=== PATIENT | female | born 1940 | race Caucasian/White ===

== ENCOUNTER → 2017-10-22 | Outpatient (REF) | payer OTHER ==
[2017-10-22 14:33] LABS: FOLATE 16.8 NG/ML; VITAMIN B12 LEVEL 411 PG/ML
[2017-10-27 00:07] LABS: VITAMIN B1 LEVEL WHOLE BLOOD 102.8 nmol/L (66.5-200.0); VITAMIN E LEVEL 11.6 mg/L (6.5-21.5)
== END ==
LOC: M LAB REF 13:00
DX: G90.09 Other idiopathic peripheral autonomic neuropathy (principal); R41.0 Disorientation, unspecified; Z13.1 Encounter for screening for diabetes mellitus
CPT/HCPCS: 82746

== ENCOUNTER → 2018-01-27 | Outpatient (REF) | payer OTHER ==
[2018-01-27 20:25] LABS: VITAMIN B12 LEVEL 615 PG/ML (247-911)
== END ==
LOC: M LAB REF 17:29
DX: R53.83 Other fatigue (principal)
CPT/HCPCS: 82607

== ENCOUNTER 2018-07-02 11:25 | Emergency (ER) | payer OTHER ==
[2018-07-02 11:53] LABS: BASO % 0.4 % (0.0-1.0); EOS % 0.5 % (0.0-3.0); HEMATOCRIT 39.9 % (36.0-47.0); HEMOGLOBIN 12.8 g/dl (12.0-15.5); IMMATURE GRANULOCYTE % 0.8 % (0-3.0); LYMPH # 3.4 10^3/uL (1.5-4.5); LYMPH % 43.8 % (24.0-44.0); MEAN CORPUSCULAR HEMOGLOBIN 27.7 pg (27.0-33.0); MEAN CORPUSCULAR HGB CONC 32.1 g/dl (32.0-36.5); MEAN CORPUSCULAR VOLUME 86.4 fl (80.0-96.0); MONO # 0.4 10^3/uL (0.0-0.8); MONO % 5.5 % (0.0-5.0); NEUTROPHILS # 3.8 10^3/uL (1.8-7.7); PLATELET COUNT, AUTOMATED 240 10^3/uL (150-450); RED BLOOD COUNT 4.62 10^6/uL (4.00-5.40); RED CELL DISTRIBUTION WIDTH 13.4 % (11.5-14.5); WHITE BLOOD COUNT 7.8 10^3/uL (4.0-10.0)
[2018-07-02 12:24] LABS: ALBUMIN 3.6 GM/DL (3.2-5.2); ALBUMIN/GLOBULIN RATIO 0.97 (1.00-1.93); ALKALINE PHOSPHATASE 75 U/L (45-117); ALT/SGPT 19 U/L (12-78); ANION GAP 11 MEQ/L (8-16); AST/SGOT 16 U/L (7-37); BILIRUBIN,DIRECT < 0.1 MG/DL (0.0-0.2); BILIRUBIN,TOTAL 0.4 MG/DL (0.2-1.0); BLOOD UREA NITROGEN 13 MG/DL (7-18); CALCIUM LEVEL 8.4 MG/DL (8.8-10.2); CARBON DIOXIDE LEVEL 26 MEQ/L (21-32); CHLORIDE LEVEL 105 MEQ/L (98-107); CPK CREATINE PHOSPHOKINASE 76 U/L (26-192); CREATININE FOR GFR 0.74 MG/DL (0.55-1.30); GLOMERULAR FILTRATION RATE > 60.0 (>32); GLUCOSE, FASTING 140 MG/DL (70-100); MB/CK RELATIVE INDEX 1.58 (< OR =4); POTASSIUM SERUM 3.2 MEQ/L (3.5-5.1); SODIUM LEVEL 142 MEQ/L (136-145); TOTAL PROTEIN 7.3 GM/DL (6.4-8.2); TROPONIN I < 0.02 NG/ML (< 0.10)
[2018-07-02] MEDS: ONDANSETRON 4MG/2ML VIAL (J2405) IV (12:27)
[2018-07-02] MEDS: MECLIZINE 25 MG TABLET PO (13:15)
[2018-07-02 14:03] LABS: MAGNESIUM LEVEL 2.2 MG/DL (1.8-2.4)
[2018-07-02 15:03] LABS: APPEARANCE, URINE HAZY (CLEAR); BACTERIA, URINE AUTO 1+ (NEGATIVE); BILIRUBIN, URINE AUTO NEGATIVE (NEGATIVE); BLOOD, URINE BLOOD NEGATIVE (NEGATIVE); COLOR, URINE YELLOW (YELLOW); GLUCOSE, URINE (UA) AUTO NEGATIVE (NEGATIVE); KETONE, URINE AUTO 1+ mg/dL (NEGATIVE); LEUKOCYTE ESTERASE, URINE AUTO 3+ (NEGATIVE); MUCUS, URINE SMALL (NEGATIVE); NITRITE, URINE AUTO POSITIVE (NEGATIVE); PROTEIN, URINE AUTO NEGATIVE (NEGATIVE); RBC, URINE AUTO 8 /HPF (0-3); SPECIFIC GRAVITY URINE AUTO 1.013 (1.002-1.035); SQUAMOUS EPITHELIAL CELL UR AU 2 /HPF (0-6); UROBILINOGEN, URINE AUTO 0.2 mg/dL (0.0-2.0); WBC, URINE AUTO 63 /HPF (0-3)
[2018-07-02] MEDS: CEPHALEXIN 500 MG CAP PO (16:17)
== END 2018-07-02 16:33 | disposition home or self-care (01) ==
LOC: M ED 11:25
DX: R42 Dizziness and giddiness (principal); E03.9 Hypothyroidism, unspecified
CPT/HCPCS: J2405

== ENCOUNTER → 2018-08-05 | Outpatient (REF) | payer MEDICARE, OTHER ==
[~2018-08-05] MED LIST: KEFL500C17 PO; LEVO75TA4; MECL1CHW2 PO
== END ==
LOC: M LAB REF 17:21
PROVIDERS: ATTEND Nurse Practitioner Family
DX: N30.91 Cystitis, unspecified with hematuria (principal)

== ENCOUNTER → 2018-08-23 | Outpatient (REF) | payer MEDICARE ==
[2018-08-23 19:13] LABS: INR 0.88; PARTIAL THROMBOPLASTIN TIME 29.2 SECONDS (25.4-37.6)
== END ==
LOC: M LAB REF 18:01
PROVIDERS: ATTEND Internal Medicine
DX: I82.402 Acute embolism and thrombosis of unspecified deep veins of left lower extremity (principal)

== ENCOUNTER → 2018-08-23 | Outpatient (CLI) | payer MEDICARE ==
--- NOTE | 2018-08-23 16:23 | REP ---
Duplex extremity venous ultrasound: Left lower extremity. History: Pain and swelling. Rule out DVT. Findings: The deep veins are anechoic and fully compressible from the groin to the popliteal fossa in the left lower extremity. Color flow imaging is homogeneous. Spectral Doppler interrogation demonstrates intact respiratory variation in flow and normal manual augmentation of flow. There is no evidence of deep vein thrombosis. Impression: Negative left lower extremity duplex venous ultrasound. No evidence of deep vein thrombosis. Electronically Signed by Marlo Boudreaux MD 08/23/2018 04:14 P
== END ==
LOC: M RAD 15:26
PROVIDERS: ATTEND Internal Medicine
DX: M79.662 Pain in left lower leg (principal); M79.89 Other specified soft tissue disorders; I82.402 Acute embolism and thrombosis of unspecified deep veins of left lower extremity

== ENCOUNTER → 2018-08-24 | Outpatient (CLI) | payer MEDICARE ==
--- NOTE | 2018-08-24 08:04 | REP ---
Clinical: Increased pain and swelling at the left thigh. Technique: Real time stinson scale and color Doppler evaluation of the left lower extremity arterial vasculature using linear high frequency transducer. Findings: The ankle to brachial index of the left lower extremity is 1.13 Color Doppler interrogation demonstrates normal triphasic wave patterns and velocities at the common femoral artery and profunda femoris followed by biphasic arterial wave patterns through the superficial femoral artery distally. There is no evidence for occlusion, stenosis, or significant atherosclerotic disease. PSV(cm/sec) LEFT Common femoral artery 165.7 cm/s Profunda femoris artery 107.6 cm/s Proximal superficial femoral artery 97.3 cm/s Mid superficial femoral artery 74.8 cm/s Distal superficial femoral artery 75.6 cm/s Popliteal artery 51.2 cm/s Proximal WILL 35.6 cm/s Tibioperoneal trunk 57.8 cm/s Proximal HOTEL [employer]ATION AGENT 62.8 cm/s Distal HOTEL RESERVATION AGENT 67.8 cm/s Distal WILL 69.0 cm/s Impression: No significant areas of occlusion, significant stenosis or atherosclerotic disease noted. Visualized surrounding subcutaneous tissues appear relatively normal. Electronically Signed by Kvng Luna MD 08/24/2018 07:56 A
== END ==
LOC: M RAD 07:03
PROVIDERS: ATTEND Internal Medicine
DX: M79.89 Other specified soft tissue disorders (principal)

== ENCOUNTER → 2019-02-18 | Outpatient (REF) | payer MEDICARE ==
[~2019-02-18] MED LIST changes: +MECL1CHW PO; -MECL1CHW2 PO
== END ==
LOC: M LAB REF 16:11
PROVIDERS: ATTEND Internal Medicine
DX: R53.1 Weakness (principal)

== ENCOUNTER → 2019-06-27 | Outpatient (REF) | payer MEDICARE | LOC: M LAB REF 16:52 | PROVIDERS: ATTEND Nurse Practitioner Family | DX: H60.312 Diffuse otitis externa, left ear (principal) ==

== ENCOUNTER → 2019-09-14 | Outpatient (REF) | payer MEDICARE | LOC: M LAB REF 12:35 | PROVIDERS: ATTEND Internal Medicine | DX: I80.02 Phlebitis and thrombophlebitis of superficial vessels of left lower extremity (principal) ==

== ENCOUNTER 2019-10-05 18:59 | Emergency (ER) | payer MEDICARE ==
[~2019-10-05] VITALS: Ht 152.4 cm; Wt 63.6 kg
[2019-10-05 19:38] LABS: BASO % 0.4 % (0.0-1.0); EOS % 0.6 % (0.0-3.0); HEMATOCRIT 43.1 % (36.0-47.0); HEMOGLOBIN 13.7 g/dl (12.0-15.5); LYMPH # 2.3 10^3/uL (1.5-5.0); LYMPH % 32.3 % (24.0-44.0); MEAN CORPUSCULAR HEMOGLOBIN 27.1 pg (27.0-33.0); MEAN CORPUSCULAR HGB CONC 31.8 g/dl (32.0-36.5); MEAN CORPUSCULAR VOLUME 85.3 fl (80.0-96.0); MONO # 0.4 10^3/uL (0.0-0.8); MONO % 5.1 % (0.0-5.0); NEUTROPHILS # 4.5 10^3/uL (1.5-8.5); NEUTROPHILS % 61.3 % (36.0-66.0); PLATELET COUNT, AUTOMATED 251 10^3/uL (150-450); RED BLOOD COUNT 5.05 10^6/uL (4.00-5.40); WHITE BLOOD COUNT 7.3 10^3/uL (4.0-10.0)
[2019-10-05] MEDS ORDERED: NS 500 ML IV ONE ×2 (19:45→20:00)
[2019-10-05 19:49] LABS: INR 1.02; PARTIAL THROMBOPLASTIN TIME 24.7 SECONDS (25.0-38.4); PROTHROMBIN TIME 13.1 SECONDS (11.8-14.0)
[2019-10-05 20:14] LABS: ALBUMIN 4.1 GM/DL (3.2-5.2); ALT/SGPT 20 U/L (12-78); BILIRUBIN,DIRECT 0.1 MG/DL (0.0-0.2); BILIRUBIN,TOTAL 0.5 MG/DL (0.2-1.0); BLOOD UREA NITROGEN 12 MG/DL (7-18); CALCIUM LEVEL 8.9 MG/DL (8.8-10.2); CARBON DIOXIDE LEVEL 27 MEQ/L (21-32); CHLORIDE LEVEL 106 MEQ/L (98-107); CK-MB VALUE MASS < 1.0 NG/ML (<3.6); CPK CREATINE PHOSPHOKINASE 78 U/L (26-192); CREATININE FOR GFR 1.11 MG/DL (0.55-1.30); FREE T4 1.42 NG/DL (0.76-1.46); GLOMERULAR FILTRATION RATE 50.2 (>32); GLUCOSE, FASTING 152 MG/DL (70-100); MB/CK RELATIVE INDEX 1.28 (< OR =4); POTASSIUM SERUM 3.7 MEQ/L (3.5-5.1); SODIUM LEVEL 142 MEQ/L (136-145); TOTAL PROTEIN 7.4 GM/DL (6.4-8.2); TROPONIN I < 0.02 NG/ML (< 0.10)
[2019-10-05 21:29] LABS: MAGNESIUM LEVEL 2.3 MG/DL (1.8-2.4)
[2019-10-05 23:15] VITALS: BP 138/74
--- NOTE | 2019-10-06 07:09 | ECGEPIP ---
[facility] - ED Test Date: 2019-10-05 Pat Name: ASH LOPEZ Department: Room: - Gender: Female Surgical Services Asst: gerhard : 1940 Requested By: MAYA Tovar Order Number: [id number] Reading MD: Mikal Linton Measurements Intervals [place] Rate: 92 P: 70 AL: 149 QRS: -64 QRSD: 134 T: 45 QT: 414 QTc: 513 Interpretive Statements SINUS RHYTHM WITH FREQUENT VENTRICULAR PREMATURE COMPLEXES RIGHT BUNDLE BRANCH BLOCK, NEW COMPARED TO 07/02/18 Electronically Signed on 10-06-2019 7:09:07 EST by Mikal Linton
--- NOTE | 2019-10-06 07:54 | REP ---
Chest x-ray: Two views. History: Dizziness. Evaluate for CHF or infiltrate. Comparison chest x-ray: September 12, 2013. Findings: EKG monitoring electrodes overlie the chest. The lungs are well inflated and clear. Pleural angles are sharp. Heart size is normal. Thoracic aorta slightly tortuous. No significant bony abnormality. Impression: No active disease. Electronically Signed by Marlo Boudreaux MD 10/06/2019 07:46 A
== END 2019-10-05 23:39 | disposition home or self-care (01) ==
LOC: M ED 18:59
DX: I95.1 Orthostatic hypotension (principal); I45.10 Unspecified right bundle-branch block; E03.9 Hypothyroidism, unspecified; R42 Dizziness and giddiness; F17.200 Nicotine dependence, unspecified, uncomplicated; Z79.899 Other long term (current) drug therapy

== ENCOUNTER → 2021-04-01 | Outpatient (REF) | payer MEDICARE | LOC: M LAB REF 16:22 | PROVIDERS: ATTEND Internal Medicine | DX: R30.0 Dysuria (principal) ==

== ENCOUNTER → 2021-07-23 | Outpatient (REF) | payer MEDICARE | LOC: M LAB REF 16:42 | PROVIDERS: ATTEND Internal Medicine | DX: R31.9 Hematuria, unspecified (principal) ==

== ENCOUNTER → 2021-09-10 | Outpatient (REF) | payer MEDICARE ==
[2021-09-10 17:38] LABS: APPEARANCE, URINE HAZY (CLEAR); BACTERIA, URINE AUTO 1+ (NEGATIVE); BILIRUBIN, URINE AUTO NEGATIVE (NEGATIVE); BLOOD, URINE BLOOD 2+ (NEGATIVE); COLOR, URINE YELLOW (YELLOW); GLUCOSE, URINE (UA) AUTO NEGATIVE (NEGATIVE); KETONE, URINE AUTO NEGATIVE (NEGATIVE); LEUKOCYTE ESTERASE, URINE AUTO 1+ (NEGATIVE); MUCUS, URINE SMALL (NEGATIVE); NITRITE, URINE AUTO NEGATIVE (NEGATIVE); PROTEIN, URINE AUTO NEGATIVE (NEGATIVE); RBC, URINE AUTO 84 /HPF (0-3); SQUAMOUS EPITHELIAL CELL UR AU 13 /HPF (0-6); UROBILINOGEN, URINE AUTO 0.2 mg/dL (0.0-2.0); WBC, URINE AUTO 5 /HPF (0-3)
== END ==
LOC: M LAB REF 16:37
PROVIDERS: ATTEND Internal Medicine
DX: R31.9 Hematuria, unspecified (principal)

== ENCOUNTER → 2021-09-16 | Outpatient (REF) | payer MEDICARE | LOC: M LAB REF 11:36 | PROVIDERS: ATTEND Internal Medicine | DX: R31.9 Hematuria, unspecified (principal) ==

== ENCOUNTER → 2021-09-23 | Outpatient (CLI) | payer MEDICARE | LOC: M PLAIMG 08:32 | PROVIDERS: ATTEND Internal Medicine | DX: R26.89 Other abnormalities of gait and mobility (principal) ==

== ENCOUNTER → 2021-09-25 | Outpatient (CLI) | payer MEDICARE | LOC: M RAD 12:35 | PROVIDERS: ATTEND Internal Medicine | DX: R31.9 Hematuria, unspecified (principal); N28.1 Cyst of kidney, acquired ==

== ENCOUNTER → 2021-10-28 | Outpatient (CLI) | payer MEDICARE | LOC: M RAD 14:06 | PROVIDERS: ATTEND Internal Medicine | DX: R10.2 Pelvic and perineal pain (principal); R31.9 Hematuria, unspecified ==

== ENCOUNTER → 2021-11-01 | Outpatient (REF) | payer MEDICARE ==
[2021-11-01 18:16] LABS: APPEARANCE, URINE CLEAR (CLEAR); BACTERIA, URINE AUTO NEGATIVE (NEGATIVE); BILIRUBIN, URINE AUTO NEGATIVE (NEGATIVE); BLOOD, URINE BLOOD 1+ (NEGATIVE); COLOR, URINE STRAW (YELLOW); GLUCOSE, URINE (UA) AUTO NEGATIVE (NEGATIVE); KETONE, URINE AUTO NEGATIVE (NEGATIVE); LEUKOCYTE ESTERASE, URINE AUTO NEGATIVE (NEGATIVE); NITRITE, URINE AUTO NEGATIVE (NEGATIVE); PROTEIN, URINE AUTO NEGATIVE (NEGATIVE); RBC, URINE AUTO 2 /HPF (0-3); SPECIFIC GRAVITY URINE AUTO 1.008 (1.002-1.035); SQUAMOUS EPITHELIAL CELL UR AU 0 /HPF (0-6); UROBILINOGEN, URINE AUTO 0.2 mg/dL (0.0-2.0); WBC, URINE AUTO 0 /HPF (0-3)
== END ==
LOC: M SMT 16:59
PROVIDERS: ATTEND Physician Assistant
DX: R32 Unspecified urinary incontinence (principal)

== ENCOUNTER → 2022-11-06 | Outpatient (REF) | payer OTHER | LOC: M LAB REF 16:35 | PROVIDERS: ATTEND Internal Medicine | DX: R41.81 Age-related cognitive decline (principal) ==

== ENCOUNTER 2022-11-18 09:03 | Day surgery (SDC) | payer MEDICARE, OTHER ==
[~2022-11-18] VITALS: Ht 152.4 cm; Wt 61.7 kg
[~2022-11-18 09:03] MED LIST changes: +CEFUROXIME 1MG/0.1ML INTRACAMERAL INJ As Ordered ONE; +CYCLOPENTOLATE 1% OPHTH SOLN 2ML BTL OD SCH; +LEVO100T5 PO; +LIDOCAINE 1% SDV 5ML VIAL As Ordered ONE; +MIDO2.5T PO; +OFLOXACIN 0.3 % (OCUFLOX) OPTH SOL 5ML OD SCH; +OXYB-54 PO; +PHENYLEPHRINE 2.5% OPHTH SOL 2ML OD SCH; +PROPARACAINE 0.5% OPHTH SOL 15ML OD ONE; +TROPICAMIDE 1% OPHTH SOLN 15ML OD SCH
[2022-11-18] MEDS ORDERED: BSS IRR 500ML/OMIDRIA 4ML IRR BAG (OR ONLY) As Ordered ONE (10:10)
[2022-11-18] MEDS ORDERED: DUOVISC (0.50ML VISCOAT/0.85ML PROVISC) OPHTH KIT As Ordered ONE (10:53)
[2022-11-18 11:38] VITALS: BP 153/78
[2022-11-18] MEDS ORDERED: fentaNYL 100 MCG/2 ML INJECTION As Ordered ONE (11:49)
[2022-11-18] MEDS ORDERED: MIDAZOLAM INJ 2MG/2ML VIAL As Ordered ONE (11:49)
== END 2022-11-18 12:02 | disposition home or self-care (01) ==
LOC: M SDC 09:03
PROVIDERS: ATTEND Ophthalmology
DX: H25.11 Age-related nuclear cataract, right eye (principal); E03.9 Hypothyroidism, unspecified; Z79.890 Hormone replacement therapy; Z79.899 Other long term (current) drug therapy
CPT/HCPCS: 66984; J0697; J1097; J2250; J3010; V2632

== ENCOUNTER 2022-12-23 06:29 | Day surgery (SDC) | payer OTHER ==
[~2022-12-23] VITALS: Ht 152.4 cm; Wt 62.1 kg
[~2022-12-23 06:29] MED LIST changes: -CEFUROXIME 1MG/0.1ML INTRACAMERAL INJ As Ordered ONE; -CYCLOPENTOLATE 1% OPHTH SOLN 2ML BTL OD SCH; +CYCLOPENTOLATE 1% OPHTH SOLN 2ML BTL OS SCH; -LIDOCAINE 1% SDV 5ML VIAL As Ordered ONE; -OFLOXACIN 0.3 % (OCUFLOX) OPTH SOL 5ML OD SCH; +OFLOXACIN 0.3 % (OCUFLOX) OPTH SOL 5ML OS SCH; -PHENYLEPHRINE 2.5% OPHTH SOL 2ML OD SCH; +PHENYLEPHRINE 2.5% OPHTH SOL 2ML OS SCH; -PROPARACAINE 0.5% OPHTH SOL 15ML OD ONE; +PROPARACAINE 0.5% OPHTH SOL 15ML OS ONE; -TROPICAMIDE 1% OPHTH SOLN 15ML OD SCH; +TROPICAMIDE 1% OPHTH SOLN 15ML OS SCH
[2022-12-23] MEDS ORDERED: CEFUROXIME 1MG/0.1ML INTRACAMERAL INJ As Ordered ONE ×2 (06:38→08:21)
[2022-12-23] MEDS ORDERED: LIDOCAINE 1% SDV 5ML VIAL As Ordered ONE (06:38)
[2022-12-23] MEDS ORDERED: BSS IRR 500ML/OMIDRIA 4ML IRR BAG (OR ONLY) As Ordered ONE (06:38)
[2022-12-23] MEDS ORDERED: MIDAZOLAM INJ 2MG/2ML VIAL As Ordered ONE (06:55)
[2022-12-23] MEDS ORDERED: fentaNYL 100 MCG/2 ML INJECTION As Ordered ONE (06:55)
[2022-12-23 08:43] VITALS: BP 160/81; TEMP 97.5; O2SAT 96
== END 2022-12-23 08:55 | disposition home or self-care (01) ==
LOC: M SDC 06:29
PROVIDERS: ATTEND Ophthalmology
DX: H25.12 Age-related nuclear cataract, left eye (principal); I10 Essential (primary) hypertension; E03.9 Hypothyroidism, unspecified; Z79.899 Other long term (current) drug therapy; Z79.890 Hormone replacement therapy
CPT/HCPCS: 66984; J0697; J1097; J2250; J3010; V2632

== ENCOUNTER → 2023-02-11 | Outpatient (CLI) | payer OTHER ==
[~2023-02-11] MED LIST changes: -CYCLOPENTOLATE 1% OPHTH SOLN 2ML BTL OS SCH; -OFLOXACIN 0.3 % (OCUFLOX) OPTH SOL 5ML OS SCH; -PHENYLEPHRINE 2.5% OPHTH SOL 2ML OS SCH; -PROPARACAINE 0.5% OPHTH SOL 15ML OS ONE; -TROPICAMIDE 1% OPHTH SOLN 15ML OS SCH
== END ==
LOC: M RAD 09:14
PROVIDERS: ATTEND Internal Medicine
DX: R41.81 Age-related cognitive decline (principal)

== ENCOUNTER 2023-04-06 19:52 | Emergency (ER) | payer OTHER ==
[~2023-04-06] VITALS: Ht 157.5 cm; Wt 62.6 kg
[2023-04-06 20:11] VITALS: TEMP 97.3
[2023-04-06 21:36] LABS: BASO % 0.3 % (0.0-1.0); EOS # 0.1 10^3/uL (0.0-0.5); EOS % 1.3 % (0.0-3.0); HEMATOCRIT 36.4 % (36.0-47.0); LYMPH # 1.4 10^3/uL (1.5-5.0); LYMPH % 23.6 % (24.0-44.0); MEAN CORPUSCULAR VOLUME 84.8 fl (80.0-96.0); MONO # 0.5 10^3/uL (0.0-0.8); NEUTROPHILS % 66.3 % (36.0-66.0); PLATELET COUNT, AUTOMATED 203 10^3/uL (150-450); RED BLOOD COUNT 4.29 10^6/uL (4.00-5.40)
[2023-04-06 22:03] LABS: ALBUMIN 3.4 G/DL (3.2-5.2); ALKALINE PHOSPHATASE 103 U/L (46-116); ALT/SGPT 12 U/L (7.0-40); AST/SGOT 13 U/L (<34); BILIRUBIN,DIRECT 0.1 MG/DL (<0.4); BILIRUBIN,TOTAL 0.3 MG/DL (0.3-1.2); BLOOD UREA NITROGEN 16 MG/DL (9-23); CALCIUM LEVEL 8.5 MG/DL (8.3-10.6); CARBON DIOXIDE LEVEL 26 MMOL/L (20-31); CHLORIDE LEVEL 109 MMOL/L (98-107); CK-MB VALUE MASS < 1.0 NG/ML (<3.6); CREATININE FOR GFR 0.83 MG/DL (0.55-1.30); GLOMERULAR FILTRATION RATE > 60.0 (>32); GLUCOSE, FASTING 129 MG/DL (74-106); POTASSIUM SERUM 3.9 MMOL/L (3.5-5.1); SODIUM LEVEL 143 MMOL/L (136-145); TOTAL PROTEIN 6.5 G/DL (5.7-8.2)
[2023-04-06 22:05] LABS: THYROID STIMULATING HORMONE 0.315 uIU/ML (0.55-4.78)
[2023-04-06 22:06] LABS: RSV AMPLIFICATION NEGATIVE (NEGATIVE)
[2023-04-06 22:06] LABS: CPK CREATINE PHOSPHOKINASE 75 U/L (34-145); MB/CK RELATIVE INDEX 1.33 (< OR =4)
[2023-04-06] MEDS ORDERED: diazePAM 10MG/2ML SYRINGE IV ONE (22:10)
[2023-04-06] MEDS ORDERED: KETOROLAC 30 MG/ML 1ML VIAL IV ONE (22:10)
[2023-04-06] MEDS ORDERED: methylPREDNISolone 125MG 2ML VIAL IM ONE (23:25)
[2023-04-06 23:45] VITALS: BP 169/89
[2023-04-06] MEDS ORDERED: LIDOCAINE 5% (LIDODERM) PATCH TD ONE (23:50)
[2023-04-06 23:52] VITALS: O2SAT 96
[2023-04-06] MEDS ORDERED: PRED20TA PO (23:55)
[2023-04-06] MEDS ORDERED: LIDO5DIS41 TD (23:55)
== END 2023-04-07 00:20 | disposition home or self-care (01) ==
LOC: EDBD 19:52 → M ED 19:52
DX: S32.020A Wedge compression fracture of second lumbar vertebra, initial encounter for closed fracture (principal); W19.XXXA Unspecified fall, initial encounter; Y92.009 Unspecified place in unspecified non-institutional (private) residence as the place of occurrence of the external cause; M43.17 Spondylolisthesis, lumbosacral region; M85.88 Other specified disorders of bone density and structure, other site; M47.9 Spondylosis, unspecified; Z79.899 Other long term (current) drug therapy
CPT/HCPCS: 71045; 72131; 73521; 80048; 80076; 82550; 82553; 84443; 84484; 85025; 87631; 93005; 96372; 96374; 96375; 99285; J1885; J2930; J3360

== ENCOUNTER 2023-04-09 01:04 | Observation (INO) | payer OTHER ==
[~2023-04-09] VITALS: Ht 154.9 cm; Wt 54.0 kg
[2023-04-09] VITALS (11 sets, daily range): BP systolic 118–193; BP diastolic 72–92; TEMP 97.3–97.9; O2SAT 87–98
[~2023-04-09 01:04] MED LIST changes: +LIDO5DIS41 TD; +PRED20TA PO
[2023-04-09] MEDS ORDERED: ONDANSETRON 4MG 2ML VIAL IV ONE (02:00)
[2023-04-09] MEDS ORDERED: MECLIZINE 25 MG TABLET PO ONE ×2 (02:25→11:30)
[2023-04-09 04:08] LABS: BASO % 0.1 % (0.0-1.0); EOS % 0.1 % (0.0-3.0); HEMATOCRIT 37.2 % (36.0-47.0); HEMOGLOBIN 12.2 g/dl (12.0-15.5); LYMPH # 2.4 10^3/uL (1.5-5.0); LYMPH % 20.1 % (24.0-44.0); MEAN CORPUSCULAR HEMOGLOBIN 27.2 pg (27.0-33.0); MEAN CORPUSCULAR HGB CONC 32.8 g/dl (32.0-36.5); MEAN CORPUSCULAR VOLUME 82.9 fl (80.0-96.0); MONO # 0.7 10^3/uL (0.0-0.8); MONO % 5.8 % (2.0-8.0); NEUTROPHILS # 8.8 10^3/uL (1.5-8.5); NEUTROPHILS % 73.3 % (36.0-66.0); PLATELET COUNT, AUTOMATED 267 10^3/uL (150-450); RED BLOOD COUNT 4.49 10^6/uL (4.00-5.40)
[2023-04-09 04:31] LABS: LIPASE 41 U/L (12-53)
[2023-04-09 04:33] LABS: ALBUMIN 3.5 G/DL (3.2-5.2); ALKALINE PHOSPHATASE 94 U/L (46-116); ALT/SGPT 16 U/L (7.0-40); AST/SGOT 15 U/L (<34); BILIRUBIN,TOTAL 0.4 MG/DL (0.3-1.2); BLOOD UREA NITROGEN 22 MG/DL (9-23); CALCIUM LEVEL 8.8 MG/DL (8.3-10.6); CARBON DIOXIDE LEVEL 24 MMOL/L (20-31); CHLORIDE LEVEL 107 MMOL/L (98-107); GLOMERULAR FILTRATION RATE > 60.0 (>32); GLUCOSE, FASTING 166 MG/DL (74-106); POTASSIUM SERUM 3.6 MMOL/L (3.5-5.1); SODIUM LEVEL 143 MMOL/L (136-145); TOTAL PROTEIN 6.5 G/DL (5.7-8.2)
[2023-04-09] MEDS ORDERED: ACETAMINOPHEN TAB 650MG DOSE (2X325MG) PO PRN (05:15)
[2023-04-09] MEDS ORDERED: MOM 30ML SUSPENSION UDC PO PRN (05:15)
[2023-04-09] MEDS ORDERED: MAALOX 30 ML SUSP *UDC PO PRN (05:15)
[2023-04-09] MEDS ORDERED: ONDANSETRON 4MG 2ML VIAL IV PRN (05:55)
[2023-04-09] MEDS ORDERED: hydrALAZINE 20MG/ML 1ML VIAL IV ONE (06:00)
[2023-04-09] MEDS ORDERED: PRED20TA PO (06:17)
[2023-04-09] MEDS ORDERED: LIDO5TD TOP (06:17)
[2023-04-09] MEDS ORDERED: SYNT75TA PO (06:17)
[2023-04-09] MEDS ORDERED: HOME MED LIST COMPLETE! XX SCH (06:20)
[2023-04-09] MEDS ORDERED: UNRESOLVED CLARIFICATION ENTRY XX STA (06:24)
[2023-04-09 06:26] LABS: RSV AMPLIFICATION NEGATIVE (NEGATIVE)
[2023-04-09] MEDS ORDERED: LIDOCAINE 5% (LIDODERM) PATCH TOP PRN (07:35)
[2023-04-09 08:17] LABS: HEMOGLOBIN A1c 5.7 % (4.0-6.0)
[2023-04-09] MEDS ORDERED: LORazepam 0.5 MG TAB PO ONE (08:30)
[2023-04-09] MEDS: LEVOTHYROXINE 75MCG TABLET (0.075MG) PO SCH (08:38)
[2023-04-09] MEDS: ENOXAPARIN 40MG/0.4ML SYRINGE (J1650 PER 10MG) SC SCH (08:39)
[2023-04-09] MEDS ORDERED: LORazepam 0.5 MG TAB PO PRN (08:45)
[2023-04-09 09:34] LABS: FREE T4 1.06 NG/DL (0.89-1.76)
[2023-04-09] MEDS ORDERED: MECLIZINE 25 MG TABLET PO PRN (11:05)
[2023-04-09] MEDS ORDERED: CLOPIDOGREL 300 MG TAB (PLAVIX) PO STA (11:53)
[2023-04-09] MEDS ORDERED: ASPIRIN 325 MG TAB PO ONE (11:55)
[2023-04-09 12:28] LABS: CHOLESTEROL LEVEL 238 MG/DL (<200); CHOLESTEROL RISK RATIO 4.76 (<5); HDL CHOLESTEROL 49.9 MG/DL (>40); LDL CHOLESTEROL 164.5 MG/DL (<100); NON-HDL-C 188.1 MG/DL; TRIGLYCERIDES LEVEL 118 MG/DL (<150)
[2023-04-09] MEDS: ATORVASTATIN 20 MG TAB PO SCH (12:51)
[2023-04-10 01:53] VITALS: BP 142/80; TEMP 97.7; O2SAT 93
[2023-04-10] MEDS: LR 1,000 ML IV SCH ×2 (02:28→15:36)
[2023-04-10] MEDS: LEVOTHYROXINE 75MCG TABLET (0.075MG) PO SCH (05:35)
[2023-04-10 06:00] VITALS: BP 130/78; TEMP 97.2; O2SAT 93
[2023-04-10 06:12] LABS: HEMATOCRIT 34.3 % (36.0-47.0); HEMOGLOBIN 11.2 g/dl (12.0-15.5); MEAN CORPUSCULAR HEMOGLOBIN 27.9 pg (27.0-33.0); MEAN CORPUSCULAR HGB CONC 32.7 g/dl (32.0-36.5); MEAN CORPUSCULAR VOLUME 85.5 fl (80.0-96.0); PLATELET COUNT, AUTOMATED 186 10^3/uL (150-450); RED BLOOD COUNT 4.01 10^6/uL (4.00-5.40); WHITE BLOOD COUNT 6.6 10^3/uL (4.0-10.0)
[2023-04-10 06:35] LABS: BLOOD UREA NITROGEN 17 MG/DL (9-23); CALCIUM LEVEL 8.3 MG/DL (8.3-10.6); CARBON DIOXIDE LEVEL 30 MMOL/L (20-31); CHLORIDE LEVEL 107 MMOL/L (98-107); CREATININE FOR GFR 0.77 MG/DL (0.55-1.30); GLOMERULAR FILTRATION RATE > 60.0 (>32); GLUCOSE, FASTING 77 MG/DL (74-106); POTASSIUM SERUM 3.2 MMOL/L (3.5-5.1); SODIUM LEVEL 141 MMOL/L (136-145)
[2023-04-10] MEDS ORDERED: POTASSIUM CHLORIDE 10MEQ SR TABLET PO ONE (08:00)
[2023-04-10] MEDS: ENOXAPARIN 40MG/0.4ML SYRINGE (J1650 PER 10MG) SC SCH (08:50)
[2023-04-10] MEDS: ASPIRIN 81MG CHEW TABLET PO SCH (08:51)
[2023-04-10] MEDS: ATORVASTATIN 20 MG TAB PO SCH (08:51)
[2023-04-10] MEDS ORDERED: CLOPIDOGREL 75 MG TAB PO SCH (09:00)
[2023-04-10 10:00] VITALS: BP 141/76; TEMP 97.3; O2SAT 95
[2023-04-10] MEDS ORDERED: ISOVUE-370 76% 100ML VIAL As Ordered ONE (10:24)
[2023-04-10 14:00] VITALS: BP 131/68; TEMP 97.3; O2SAT 93
[2023-04-10] MEDS: MECLIZINE 25 MG TABLET PO SCH ×2 (17:31→23:19)
[2023-04-10 22:00] VITALS: BP 132/67; TEMP 97.3; O2SAT 95
[2023-04-11 02:00] VITALS: BP 148/77; TEMP 97.2; O2SAT 93
[2023-04-11] MEDS: LEVOTHYROXINE 75MCG TABLET (0.075MG) PO SCH (05:42)
[2023-04-11] MEDS: MECLIZINE 25 MG TABLET PO SCH ×4 (05:42→23:37)
[2023-04-11 06:00] VITALS: BP 168/82; TEMP 97.2; O2SAT 93
[2023-04-11 06:29] VITALS: BP 124/72; O2SAT 94
[2023-04-11 06:40] LABS: BASO % 0.4 % (0.0-1.0); EOS # 0.1 10^3/uL (0.0-0.5); EOS % 2.1 % (0.0-3.0); HEMATOCRIT 38.7 % (36.0-47.0); HEMOGLOBIN 12.3 g/dl (12.0-15.5); LYMPH # 1.8 10^3/uL (1.5-5.0); LYMPH % 32.2 % (24.0-44.0); MEAN CORPUSCULAR HGB CONC 31.8 g/dl (32.0-36.5); MEAN CORPUSCULAR VOLUME 85.1 fl (80.0-96.0); MONO # 0.4 10^3/uL (0.0-0.8); MONO % 6.7 % (2.0-8.0); NEUTROPHILS # 3.3 10^3/uL (1.5-8.5); NEUTROPHILS % 57.9 % (36.0-66.0); PLATELET COUNT, AUTOMATED 203 10^3/uL (150-450); RED BLOOD COUNT 4.55 10^6/uL (4.00-5.40); WHITE BLOOD COUNT 5.7 10^3/uL (4.0-10.0)
[2023-04-11 07:05] LABS: BLOOD UREA NITROGEN 16 MG/DL (9-23); CALCIUM LEVEL 8.5 MG/DL (8.3-10.6); CARBON DIOXIDE LEVEL 29 MMOL/L (20-31); CHLORIDE LEVEL 107 MMOL/L (98-107); CREATININE FOR GFR 0.78 MG/DL (0.55-1.30); GLOMERULAR FILTRATION RATE > 60.0 (>32); GLUCOSE, FASTING 81 MG/DL (74-106); POTASSIUM SERUM 3.9 MMOL/L (3.5-5.1); SODIUM LEVEL 145 MMOL/L (136-145)
[2023-04-11] MEDS: ATORVASTATIN 20 MG TAB PO SCH (08:57)
[2023-04-11] MEDS: ASPIRIN 81MG CHEW TABLET PO SCH (08:57)
[2023-04-11] MEDS: ENOXAPARIN 40MG/0.4ML SYRINGE (J1650 PER 10MG) SC SCH (08:57)
[2023-04-11 10:11] VITALS: BP 138/69; TEMP 97.3; O2SAT 95
[2023-04-11 12:21] VITALS: BP_SYST 143; BP_SYST 144; BP_SYST 148; BP_DIAS 77; BP_DIAS 83; BP_DIAS 85
[2023-04-11 16:20] VITALS: BP 139/88; TEMP 97.5; O2SAT 95
[2023-04-12] MEDS: LEVOTHYROXINE 75MCG TABLET (0.075MG) PO SCH (05:23)
[2023-04-12] MEDS: MECLIZINE 25 MG TABLET PO SCH (05:23)
[2023-04-12 06:00] VITALS: BP 144/87; TEMP 97.5; O2SAT 92
[2023-04-12] MEDS ORDERED: MECLIZINE 25 MG TABLET PO PRN (07:15)
[2023-04-12] MEDS: ASPIRIN 81MG CHEW TABLET PO SCH (08:49)
[2023-04-12] MEDS: ATORVASTATIN 20 MG TAB PO SCH (08:50)
[2023-04-12] MEDS: ENOXAPARIN 40MG/0.4ML SYRINGE (J1650 PER 10MG) SC SCH (08:50)
[2023-04-12] MEDS: DICLOFENAC EPOLAMINE 1.3% PATCH TOP SCH ×2 (10:39→20:44)
[2023-04-12] MEDS: LIDOCAINE 5% (LIDODERM) PATCH TOP SCH (10:40)
[2023-04-13 06:00] VITALS: BP 144/86; TEMP 97.3; O2SAT 94
[2023-04-13] MEDS: LEVOTHYROXINE 75MCG TABLET (0.075MG) PO SCH (06:23)
[2023-04-13] MEDS: DICLOFENAC EPOLAMINE 1.3% PATCH TOP SCH ×2 (09:44→20:50)
[2023-04-13] MEDS: ASPIRIN 81MG CHEW TABLET PO SCH (09:44)
[2023-04-13] MEDS: ENOXAPARIN 40MG/0.4ML SYRINGE (J1650 PER 10MG) SC SCH (09:44)
[2023-04-13] MEDS: ATORVASTATIN 20 MG TAB PO SCH (09:45)
[2023-04-13] MEDS: LIDOCAINE 5% (LIDODERM) PATCH TOP SCH (09:45)
[2023-04-14 05:10] VITALS: BP 120/72; TEMP 97.9; O2SAT 94
[2023-04-14] MEDS: LEVOTHYROXINE 75MCG TABLET (0.075MG) PO SCH (05:21)
[2023-04-14] MEDS: LIDOCAINE 5% (LIDODERM) PATCH TOP SCH (08:29)
[2023-04-14] MEDS: ASPIRIN 81MG CHEW TABLET PO SCH (08:29)
[2023-04-14] MEDS: ATORVASTATIN 20 MG TAB PO SCH (08:29)
[2023-04-14] MEDS: ENOXAPARIN 40MG/0.4ML SYRINGE (J1650 PER 10MG) SC SCH (08:30)
[2023-04-14] MEDS: DICLOFENAC EPOLAMINE 1.3% PATCH TOP SCH ×2 (08:30→21:10)
[2023-04-15] MEDS: LEVOTHYROXINE 75MCG TABLET (0.075MG) PO SCH (05:32)
[2023-04-15 06:00] VITALS: BP 120/73; TEMP 97.3; O2SAT 93
[2023-04-15] MEDS: ASPIRIN 81MG CHEW TABLET PO SCH (08:57)
[2023-04-15] MEDS: ATORVASTATIN 20 MG TAB PO SCH (08:57)
[2023-04-15] MEDS: LIDOCAINE 5% (LIDODERM) PATCH TOP SCH (08:58)
[2023-04-15] MEDS: DICLOFENAC EPOLAMINE 1.3% PATCH TOP SCH ×2 (08:58→19:30)
[2023-04-15] MEDS: ENOXAPARIN 40MG/0.4ML SYRINGE (J1650 PER 10MG) SC SCH (08:58)
[2023-04-16] MEDS: LEVOTHYROXINE 75MCG TABLET (0.075MG) PO SCH (05:30)
[2023-04-16 06:00] VITALS: BP 136/81; TEMP 97.3; O2SAT 97
[2023-04-16 08:44] VITALS: BP 148/83; TEMP 97.5; O2SAT 95
[2023-04-16] MEDS: LIDOCAINE 5% (LIDODERM) PATCH TOP SCH (08:54)
[2023-04-16] MEDS: ENOXAPARIN 40MG/0.4ML SYRINGE (J1650 PER 10MG) SC SCH (08:54)
[2023-04-16] MEDS: ASPIRIN 81MG CHEW TABLET PO SCH (08:54)
[2023-04-16] MEDS: ATORVASTATIN 20 MG TAB PO SCH (08:54)
[2023-04-16] MEDS ORDERED: MECL-86 PO (09:09)
[2023-04-16] MEDS ORDERED: ASPI81CH8 PO (09:09)
[2023-04-16] MEDS ORDERED: ATOR1TAB21 PO (09:09)
== END 2023-04-16 10:02 ==
LOC: M ED 01:04 → M ED INP 05:15 → ENRESERV 12:09 → M MSPAV 13:13
PROVIDERS: ADMIT Family Medicine; ATTEND Student in an Organized Health Care Education/Training Program
DX: R11.2 Nausea with vomiting, unspecified (principal); R42 Dizziness and giddiness; J96.01 Acute respiratory failure with hypoxia; I16.0 Hypertensive urgency; I67.82 Cerebral ischemia; G31.1 Senile degeneration of brain, not elsewhere classified; R62.7 Adult failure to thrive; F03.90 Unspecified dementia, unspecified severity, without behavioral disturbance, psychotic disturbance, mood disturbance, and anxiety; N39.0 Urinary tract infection, site not specified; B96.20 Unspecified Escherichia coli [E. coli] as the cause of diseases classified elsewhere; I95.9 Hypotension, unspecified; E03.9 Hypothyroidism, unspecified; R73.9 Hyperglycemia, unspecified; D72.829 Elevated white blood cell count, unspecified; Z87.891 Personal history of nicotine dependence; Z82.49 Family history of ischemic heart disease and other diseases of the circulatory system; Z83.3 Family history of diabetes mellitus; S32.020D Wedge compression fracture of second lumbar vertebra, subsequent encounter for fracture with routine healing; W19.XXXD Unspecified fall, subsequent encounter
CPT/HCPCS: 36415; 70450; 70498; 70544; 70547; 70551; 71045; 72125; 80048; 80053; 80061; 81001; 83036; 83690; 83735; 84439; 84443; 84480; 85025; 85027; 87088; 87186; 87631; 87635; 93005; 93306; 93880; 96372; 96374; 96375; 96376; 97116; 97161; 97530; 97535; 99285; G0378; J0360; J1650; J2405; Q9967

== ENCOUNTER → 2023-05-08 | Outpatient (REF) | payer OTHER ==
[~2023-05-08] MED LIST changes: +ASPI81CH8 PO; +ATOR1TAB21 PO; +LIDO5TD TOP; +MECL-86 PO; +SYNT75TA PO
[2023-05-08 18:15] LABS: % LABILE ALKALINE PHOSPHATASE 82.4 %
== END ==
LOC: M LAB REF 16:36
PROVIDERS: ATTEND Internal Medicine
DX: R74.01 Elevation of levels of liver transaminase levels (principal)

== ENCOUNTER → 2023-12-18 | Outpatient (REF) | payer MEDICARE ==
[2023-12-18 17:06] LABS: PERCENT SATURATION 26.7 % (13.2-45.0)
[2023-12-18 17:08] LABS: FERRITIN 118.5 NG/ML (7.3-270.7)
== END ==
LOC: M LAB REF 16:24
PROVIDERS: ATTEND Internal Medicine
DX: R53.83 Other fatigue (principal); D50.9 Iron deficiency anemia, unspecified

== ENCOUNTER → 2024-10-07 | Outpatient (REF) | payer MEDICARE, MEDICAID ==
[~2024-10-07] MED LIST changes: -MIDO2.5T PO; +MIDO2.5T3 PO
== END ==
LOC: M LAB REF 12:17
PROVIDERS: ATTEND Internal Medicine
DX: N39.0 Urinary tract infection, site not specified (principal); R31.9 Hematuria, unspecified

== ENCOUNTER → 2025-02-01 | Outpatient (REF) ==
[~2025-02-01] MED LIST changes: +LIDO1ADH93 TD; -LIDO5DIS41 TD
== END ==
PROVIDERS: ATTEND Internal Medicine
DX: E03.9 Hypothyroidism, unspecified (principal)

== ENCOUNTER → 2025-03-01 | Outpatient (REF) | payer MEDICARE, MEDICAID, OTHER | PROVIDERS: ATTEND Internal Medicine | DX: E03.9 Hypothyroidism, unspecified (principal) ==

== ENCOUNTER → 2025-03-06 | Outpatient (REF) | payer MEDICARE, MEDICAID | PROVIDERS: ATTEND Physician Assistant | DX: R05.9 Cough, unspecified (principal) ==

== ENCOUNTER → 2025-05-10 | Outpatient (REF) | payer MEDICARE, MEDICAID | LOC: EDSTATUS 13:41 | PROVIDERS: ATTEND Physician Assistant | DX: R22.42 Localized swelling, mass and lump, left lower limb (principal) ==

== ENCOUNTER → 2025-05-24 | Outpatient (REF) | payer MEDICARE, MEDICAID ==
[2025-05-24 11:56] LABS: PLATELET COUNT, AUTOMATED 262 10^3/uL (150-450)
[2025-05-24 12:40] LABS: CALCIUM LEVEL 8.6 MG/DL (8.3-10.6); CARBON DIOXIDE LEVEL 28.0 MMOL/L (20-31); CHLORIDE LEVEL 105.0 MMOL/L (98-107); CREATININE FOR GFR 0.79 MG/DL (0.55-1.30); GLOMERULAR FILTRATION RATE 72.4 (>32); POTASSIUM SERUM 3.9 MMOL/L (3.5-5.1); SODIUM LEVEL 145.0 MMOL/L (136-145)
== END ==
PROVIDERS: ATTEND Internal Medicine
DX: J44.9 Chronic obstructive pulmonary disease, unspecified (principal)